=== PATIENT | male | born 1950 | race Caucasian/White ===

== ENCOUNTER → 2024-04-18 06:27 | Day surgery (SDC) | payer OTHER, SELFPAY | LOC: GI 06:27 | PROVIDERS: ATTENDING PHYSICIAN Internal Medicine Gastroenterology | DX: Z12.11 Encounter for screening for malignant neoplasm of colon (principal); K64.8 Other hemorrhoids; K57.30 Diverticulosis of large intestine without perforation or abscess without bleeding; D12.2 Benign neoplasm of ascending colon; D12.3 Benign neoplasm of transverse colon | CPT/HCPCS: 45385; 88305 ==

== ENCOUNTER → 2024-10-20 09:25 | Outpatient (REF) | payer OTHER, SELFPAY | LOC: RAD 09:25 | PROVIDERS: ATTENDING PHYSICIAN Physician Assistant Medical | DX: M25.561 Pain in right knee (principal); M25.562 Pain in left knee | CPT/HCPCS: 73564 ==

== ENCOUNTER → 2025-02-05 11:02 | Outpatient (REF) | payer OTHER, SELFPAY | LOC: RAD 11:02 | PROVIDERS: ATTENDING PHYSICIAN Student in an Organized Health Care Education/Training Program; FAMILY PHYSICIAN Physician Assistant Medical | DX: M25.462 Effusion, left knee (principal); M25.669 Stiffness of unspecified knee, not elsewhere classified; R06.00 Dyspnea, unspecified; R06.02 Shortness of breath; R53.1 Weakness; Z86.19 Personal history of other infectious and parasitic diseases | CPT/HCPCS: 71046 ==